=== PATIENT | male | born 1955 | race Caucasian/White ===

== ENCOUNTER 2018-01-20 06:12 | Day surgery (SDC) | payer OTHER ==
[2018-01-20] MEDS ORDERED: LACTATED RINGERS 1,000 ML IV ONE (06:48)
[2018-01-20] MEDS ORDERED: MIDAZOLAM 2 MG/2 ML VIAL IVP ONE (07:43)
[2018-01-20] MEDS ORDERED: fentaNYL 250 MCG/5 ML VIAL IVP ONE (07:43)
[2018-01-20 08:37] VITALS: BP 108/62
== END 2018-01-20 06:13 | disposition home or self-care (01) ==
LOC: SDS 06:12
PROVIDERS: ATTEND Surgery
PROC: 0DJD8ZZ Inspection of Lower Intestinal Tract, Via Natural or Artificial Opening Endoscopic (ICD-10-PCS; principal; 2018-01-20 07:30)
DX: Z12.11 Encounter for screening for malignant neoplasm of colon (principal); K57.30 Diverticulosis of large intestine without perforation or abscess without bleeding; K64.8 Other hemorrhoids; E11.9 Type 2 diabetes mellitus without complications; F32.9 Major depressive disorder, single episode, unspecified
CPT/HCPCS: 45378; J7120

== ENCOUNTER 2021-01-30 16:47 | Outpatient (CLI) | payer MEDICARE | END 2021-01-30 16:48 | disposition home or self-care (01) | LOC: COV 16:47 | PROVIDERS: ATTEND Family Medicine | DX: R50.9 Fever, unspecified (principal); M79.10 Myalgia, unspecified site; R53.83 Other fatigue; Z20.822 Contact with and (suspected) exposure to COVID-19 ==

== ENCOUNTER 2023-12-16 09:02 | Emergency (ER) | payer MEDICARE ==
[2023-12-16 09:28] LABS: BASOPHILS # (AUTO) 0.1 10^3/uL (0.0-0.1); BASOPHILS % (AUTO) 0.9 %; EOSINOPHILS # (AUTO) 0.1 10^3/uL (0.0-0.7); EOSINOPHILS % (AUTO) 0.9 %; HCT - HEMATOCRIT 44.5 % (42.0-52.0); HGB - HEMOGLOBIN 15.3 g/dL (14.0-18.0); LYMPHOCYTES # (AUTO) 1.5 10^3/uL (1.5-3.5); LYMPHOCYTES % (AUTO) 26.6 %; MEAN CORPUSCULAR HEMOGLOBIN 30.7 pg (27.0-31.0); MEAN CORPUSCULAR HGB CONC 34.4 g/dL (32.0-36.0); MEAN CORPUSCULAR VOLUME 89.2 fL (80.0-94.0); MEAN PLATELET VOLUME 11.2 fL (7.4-11.4); MONOCYTES # (AUTO) 0.6 10^3/uL (0.0-1.0); MONOCYTES % (AUTO) 10.1 %; NEUTROPHILS # (AUTO) 3.5 10^3/uL (1.5-6.6); NEUTROPHILS % (AUTO) 61.1 %; PLT - PLATELET COUNT 183 10^3/uL (130-450); RED BLOOD COUNT 4.99 10^6/uL (4.70-6.10); RED CELL DISTRIBUTION WIDTH 13.3 % (12.0-15.0); WHITE BLOOD COUNT 5.7 x10^3/uL (4.8-10.8)
[2023-12-16] MEDS: ASPIRIN CHEW 81 MG TABLET PO STA (09:32)
[2023-12-16] MEDS: NITROGLYCERIN SL 0.4 MG TABLET SL STA (09:33)
--- NOTE | 2023-12-16 09:33 | ED Physician Documentation ---
History of Present Illness - Stated complaint Stated Complaint: CHEST PX,HEART BURN - Chief complaint Chief Complaint: Cardiac - Additonal information Additional information: Patient 68-year-old male presenting the emergency department with chest pain. Reports intermittent episodes of chest pain x 1 week. Recent travel, flew back from [place]. Has past medical significant for diabetes, dyslipidemia. No history hypertension, no history of smoking. No previous blood clots or cardiac issues. Reports feeling as though he is getting kicked in the chest. States that this has been coming and going for greater than 1 week but has become progressively worse since this morning. No associated nausea, vomiting, diaphoresis. Review of Systems Constitutional: denies: Fever Eyes: denies: Loss of vision Ears: denies: Loss of hearing Nose: denies: Rhinorrhea / runny nose Throat: denies: Dental pain / toothache Cardiac: reports: Chest pain / pressure Respiratory: denies: Dyspnea GI: denies: Abdominal Pain : denies: Dysuria PD PAST MEDICAL HISTORY - Past Medical History Past Medical History: Yes Cardiovascular: Murmur Respiratory: None Endocrine/Autoimmune: Type 2 diabetes GI: None : None HEENT: Chronic vision loss Psych: Bipolar disorder Musculoskeletal: None Derm: None - Past Surgical History Past Surgical History: Yes General: Colonoscopy, Other Ortho: Arthroscopic surgery - Present Medications Home Medications: Ambulatory Orders Medication Instructions Recorded Confirmed Divalproex [Brandie Pimentel] 250 mg PO TID 01/17/18 01/20/18 buPROPion [Wellbutrin Sr] 75 mg PO BID 01/17/18 01/20/18 buPROPion [Wellbutrin Sr] 100 mg PO DAILY 01/17/18 01/20/18 - Allergies Allergies/Adverse Reactions: Allergies Allergy/AdvReac Type Severity Reaction Status Date / Time No Known Drug Allergies Allergy Verified 12/16/23 09:22 - Social History Does the pt smoke?: No Smoking Status: Never smoker Does the pt drink ETOH?: No Does the pt have substance abuse?: No - Immunizations Immunizations are current?: Yes - POLST Patient has POLST: No PD ED PE NORMAL - Vitals Vital signs reviewed: Yes - General General: Alert and oriented X 3, Other (Patient appears unwell, very uncomfortable.). 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 Relevant findings are: 6 sinus rhythm with rate 69 bpm. Left axis deviation. Normal TX, QRS, QTc intervals. Prominent ST segment elevation in V2-V3. No reciprocal changes. No previous EKG available for comparison. PD Medical Decision Making - ED course Complexity details: d/w patient, d/w call center support consultant ED course: Patient 68-year-old male presented to the emergency department with active chest pain that has been happening intermittently x 1 week. No previous cardiac history. Risk factors for ACS include type 2 diabetes, dyslipidemia, age. Patient arrives afebrile, he medically stable. Appears ill on arrival. In acute distress. EKG with nonspecific T wave abnormalities, possible low ST segment elevations V2-V4. No appreciable reciprocal changes. No previous EKG available for comparison. Highly concerning for AGNIESZKA. Discussed with Dr. Cantu, emergency department at [facility] who very graciously agrees to accept the patient for further evaluation and treatment. In the interim patient given aspirin, heparin, 1 sublingual nitroglycerin with moderate improvement in symptoms. Bedside wet read of patient's chest x-ray no pneumothorax, hemothorax, mediastinal widening. Departure - Departure Disposition: 02 Transfer Acute Care Hosp Clinical Impression: Chest pain Qualifiers: Chest pain type: unspecified Qualified Code(s): R07.9 - Chest pain, unspecified Forms: PCP List
[2023-12-16] MEDS: HEPARIN 5,000 UNIT/ML VIAL IVP STA (09:34)
[2023-12-16] MEDS: HEPARIN 25000UNITS/500ML (D5W) 25,000 UNIT/500 ML BAG IV SCH (09:37)
[2023-12-16 09:45] LABS: ALBUMIN 4.4 g/dL (3.2-5.5); ALBUMIN/GLOBULIN RATIO 1.7 (1.0-2.2); BILIRUBIN,TOTAL 0.6 mg/dL (0.2-1.0); CALCIUM 9.8 mg/dL (8.5-10.3); POTASSIUM 4.5 mmol/L (3.5-4.5)
[2023-12-16 09:49] VITALS: BP 160/102; O2SAT 98
--- NOTE | 2023-12-16 09:49 | XRAY Report ---
PROCEDURE: Chest 1V INDICATIONS: chest pain TECHNIQUE: One view of the chest was acquired. COMPARISON: None. FINDINGS: Surgical changes and devices: None. Lungs and pleura: No pleural effusions or pneumothorax. Lungs are clear. Mediastinum: Mediastinal contours appear normal. Heart size is normal. Bones and chest wall: No suspicious bony lesions. Overlying soft tissues appear unremarkable. IMPRESSION: No acute cardiopulmonary process. Reviewed by: Gabriel Franz MD on 12/16/2023 9:48 AM PDT Approved by: Gabriel Franz MD on 12/16/2023 9:48 AM PDT Station ID: [id number]
== END 2023-12-16 10:04 | disposition short-term general hospital (02) ==
LOC: ED 09:02
DX: R07.9 Chest pain, unspecified (principal); E11.9 Type 2 diabetes mellitus without complications
CPT/HCPCS: 36415; 71045; 80053; 83690; 84484; 85025; 93005; 96374; 99285; A9270

== ENCOUNTER 2023-12-22 21:15 | Emergency (ER) | payer MEDICARE ==
--- NOTE | 2023-12-22 22:45 | XRAY Report ---
PROCEDURE: Chest 1V INDICATIONS: cough/ TECHNIQUE: One view of the chest was acquired. COMPARISON: 12/16/2023 FINDINGS: Surgical changes and devices: None. Lungs and pleura: No pleural effusions or pneumothorax. Lungs are clear. Mediastinum: Mediastinal contours appear normal. Heart size is normal. Bones and chest wall: No suspicious bony lesions. Degenerative changes in both shoulders. Overlying soft tissues appear unremarkable. IMPRESSION: No acute cardiopulmonary process. Reviewed by: Michelle Jeronimo MD on 12/22/2023 10:43 PM PDT Approved by: Michelle Jeronimo MD on 12/22/2023 10:43 PM PDT Station ID: [id number]
--- NOTE | 2023-12-22 22:45 | ED Physician Documentation ---
History of Present Illness - Stated complaint Stated Complaint: COUGH/FEVER - Chief complaint Chief Complaint: Resp - History obtained from History obtained from: Patient, Family - Additonal information Additional information: The patient comes to the emergency department chief complaint of productive cough, rhinorrhea, and sore throat for the last 4 days after being discharged from [facility] after being admitted for SD and stent placement. He states he did not have any symptoms at all in the hospital and that the cough started the evening he was discharged. He states he developed a productive cough and then began to have fevers yesterday. His temperature is gone as high as 101 at home. The patient denies shortness of breath. He is concerned about his stents in his heart recovery and that he is not getting enough oxygen with his cough. The patient has no underlying respiratory issues. PD PAST MEDICAL HISTORY - Past Medical History Past Medical History: Yes Cardiovascular: Murmur Respiratory: None Endocrine/Autoimmune: Type 2 diabetes GI: None : None HEENT: Chronic vision loss Psych: Bipolar disorder Musculoskeletal: None Derm: None - Past Surgical History Past Surgical History: Yes General: Colonoscopy, Other Ortho: Arthroscopic surgery - Present Medications Home Medications: Ambulatory Orders Medication Instructions Recorded Confirmed Divalproex [Brandie Pimentel] 250 mg PO TID 01/17/18 12/22/23 buPROPion [Wellbutrin Sr] 75 mg PO BID 01/17/18 12/22/23 buPROPion [Wellbutrin Sr] 100 mg PO DAILY 01/17/18 12/22/23 Clopidogrel [Plavix] 1 tab PO DAILY 12/22/23 12/22/23 Levothyroxine Sodium 1 tab PO DAILY 12/22/23 12/22/23 Losartan Potassium 12.5 mg PO DAILY 12/22/23 12/22/23 Metoprolol Succinate [Toprol Xl] 12.5 mg PO DAILY 12/22/23 12/22/23 Rosuvastatin Calcium [Crestor] 40 mg PO QPM 12/22/23 12/22/23 Azithromycin [Zithromax] 0 mg PO DAILY #6 tablet 12/23/23 - Allergies Allergies/Adverse Reactions: Allergies Allergy/AdvReac Type Severity Reaction Status Date / Time No Known Drug Allergies Allergy Verified 12/22/23 21:48 - Social History Does the pt smoke?: No Smoking Status: Never smoker Does the pt drink ETOH?: No Does the pt have substance abuse?: No - Immunizations Immunizations are current?: Yes - POLST Patient has POLST: No PD ED PE NORMAL - Vitals Vital signs reviewed: Yes - General General: Alert and oriented X 3, No acute distress, Well developed/nourished, Other (Well-appearing patient, no apparent distress.) - HEENT HEENT: Atraumatic, PERRL, EOMI, Moist mucous membranes - Neck Neck: Supple, no meningeal sign - Cardiac Cardiac: RRR, No murmur - Respiratory Respiratory: No respiratory distress, Clear bilaterally - Abdomen Abdomen: Soft, Non tender, Non distended - Derm Derm: Normal color, Warm and dry, No rash - Extremities Extremities: No deformity, No edema, No calf tenderness / cord - Neuro Neuro: Alert and oriented X 3, Other (Grossly intact.) - Psych Psych: Normal mood, Normal affect Results - Vitals Vitals: Oxygen O2 Source Room air - Labs Labs: Microbiology 12/22/23 22:52 Blood Culture - Preliminary Blood NO GROWTH AFTER 1 DAY 12/22/23 22:52 Blood Culture - Preliminary Blood NO GROWTH AFTER 1 DAY Laboratory Tests 12/22/23 12/22/23 12/22/23 21:42 22:52 22:52 WBC 7.4 RBC 4.31 L Hgb 13.1 L Hct 38.2 L MCV 88.6 MCH 30.4 MCHC 34.3 RDW 12.5 Plt Count 216 MPV 11.2 Neut # (Auto) 4.0 Lymph # (Auto) 1.6 [place] # (Auto) 1.6 H Eos # (Auto) 0.1 Baso # (Auto) 0.1 Absolute Nucleated RBC 0.00 Band Neuts % (Manual) Not Reportable Abnorm Lymph % (Manual) Not Reportable Nucleated RBC % 0.0 Neutrophils # (Manual) Not Reportable Lymphocytes # (Manual) Not Reportable Monocytes # (Manual) Not Reportable Eosinophils # (Manual) Not Reportable Basophils # (Manual) Not Reportable Differential Comment MANUAL=AUTO DIFF Platelet Estimate NORMAL (130-450,000) Platelet Morphology NORMAL APPEARANCE RBC Morph Micro Appear NORMAL APPEARANCE Sodium 132 L Potassium 3.7 Chloride 96 L Carbon Dioxide 26 Anion Gap 10.0 BUN 20 Creatinine 1.2 Estimated GFR (MDRD) 60 L Glucose 105 H Calcium 9.5 Total Bilirubin 0.4 AST 24 ALT 22 Alkaline Phosphatase 56 Total Protein 6.8 Albumin 4.0 Globulin 2.8 Albumin/Globulin Ratio 1.4 Lipase < 10 L Nasal Adenovirus (PCR) NOT DETECTED Nasal B. parapertussis DNA (PCR) NOT DETECTED Nasal Coronavir 229E PCR NOT DETECTED Nasal Coronavir HKU1 PCR NOT DETECTED Nasal Coronavir NL63 PCR NOT DETECTED Nasal Coronavir OC43 PCR DETECTED A Nasal Enterovir/Rhinovir PCR NOT DETECTED Nasal Influenza B PCR NOT DETECTED Nasal Influenza A PCR NOT DETECTED Nasal Parainfluen 1 PCR NOT DETECTED Nasal Parainfluen 2 PCR NOT DETECTED Nasal Parainfluen 3 PCR NOT DETECTED Nasal Parainfluen 4 PCR NOT DETECTED Nasal RSV (PCR) NOT DETECTED Nasal B.pertussis DNA PCR NOT DETECTED Nasal C.pneumoniae (PCR) NOT DETECTED [place] Human Metapneumo PCR NOT DETECTED Nasal M.pneumoniae (PCR) NOT DETECTED Nasal SARS-CoV-2 (PCR) NOT DETECTED - Rads (name of study) CXR Relevant Findings:: Final report received, See rad report (neg) PD Medical Decision Making - ED course Complexity details: reviewed old records, reviewed results, re-evaluated patient, considered differential, d/w patient, d/w family ED course: The patient was worked up with labs and blood cultures, as well as chest x-ray. Respiratory PCR panel was also sent. Given the pt's productive cough, age, and recent significant physical stress, I was concerned for the development of bacterial upper respiratory infection, and the pt was started on antibiotics. PCR panel did show positive non-covid coronavirus. WBC count was negative, and pt was feeling much better after fluids and defervescence. We have discussed the usual indications for return, and the need for follow-up as scheduled with cardiology. Departure - Departure Disposition: 01 Home, Self Care Clinical Impression: Bronchitis, Coronavirus infection Condition: Stable Instructions: ED Upper Resp Infec Abx Tx, ED Viral Syndrome Prescriptions: Azithromycin [Zithromax] 0 mg PO DAILY #6 tablet Comments: The radiologist read your x-ray as negative. You were positive for non-COVID coronavirus on your viral panel and we have been seeing this going around lately. Given your densely productive cough, we will complete the course of antibiotics for bronchitis. The prescription has been electronically transmitted to the [facility] in [place]. Please pick this up tomorrow and continue taking the antibiotics until the course is complete. As far as the coronavirus, like all viruses, this will ultimately pass on its own. Symptoms can last anywhere from several days to a couple of weeks, and include upper respiratory symptoms and fevers. You may take Tylenol 1000 mg every 6 hours as needed for fever, or you may take 500 mg every 3 hours as needed for fever. Please be sure you are drinking plenty of fluids and staying hydrated. Please follow-up with your primary doctor and television journalist as scheduled. Forms: PCP List Discharge Date/Time: 12/23/23 00:21
[2023-12-22] MEDS ORDERED: cefTRIAXone 2 GM VIAL ONE (22:55)
[2023-12-22] MEDS: cefTRIAXone 2 GM in SODIUM CHLORIDE 0.9% MINIBAG 100 ML IV STA (22:57)
[2023-12-22] MEDS: IBUPROFEN 600 MG TABLET PO STA (22:57)
[2023-12-22] MEDS: AZITHROMYCIN 250 MG TABLET PO STA (22:57)
[2023-12-22] MEDS: ACETAMINOPHEN 325 MG TABLET PO STA (22:58)
[2023-12-22 22:59] LABS: B. PARAPERTUSSIS- RESP PCR PAN NOT DETECTED; B. PERTUSSIS- RESP PCR PANEL NOT DETECTED; C. PNEUMONIAE- RESP PCR PANEL NOT DETECTED; CORONAVIRUS 229E-RESP PCR NOT DETECTED; CORONAVIRUS HKU1-RESP PCR NOT DETECTED; CORONAVIRUS NL63-RESP PCR NOT DETECTED; CORONAVIRUS OC43-RESP PCR DETECTED; HUMAN METAPNEUMOVIRUS NOT DETECTED; INFLUENZA A- RESP PCR PANEL NOT DETECTED; INFLUENZA B - RESP PCR PANEL NOT DETECTED; M. PNEUMONIAE- RESP PCR PANEL NOT DETECTED; PARAINFLUENZA VIRUS 1 NOT DETECTED; PARAINFLUENZA VIRUS 2 NOT DETECTED; PARAINFLUENZA VIRUS 3 NOT DETECTED; PARAINFLUENZA VIRUS 4 NOT DETECTED; RHINOVIRUS/ENTEROVIRUS NOT DETECTED; RSV- RESP PCR PANEL NOT DETECTED; SARS-CoV-2 -RESP PCR PANEL NOT DETECTED
[2023-12-22 23:05] LABS: BASOPHILS # (AUTO) 0.1 10^3/uL (0.0-0.1); BASOPHILS % (AUTO) 0.8 %; EOSINOPHILS # (AUTO) 0.1 10^3/uL (0.0-0.7); EOSINOPHILS % (AUTO) 0.9 %; HCT - HEMATOCRIT 38.2 % (42.0-52.0); HGB - HEMOGLOBIN 13.1 g/dL (14.0-18.0); LYMPHOCYTES # (AUTO) 1.6 10^3/uL (1.5-3.5); LYMPHOCYTES % (AUTO) 21.8 %; MEAN CORPUSCULAR HEMOGLOBIN 30.4 pg (27.0-31.0); MEAN CORPUSCULAR HGB CONC 34.3 g/dL (32.0-36.0); MEAN CORPUSCULAR VOLUME 88.6 fL (80.0-94.0); MEAN PLATELET VOLUME 11.2 fL (7.4-11.4); MONOCYTES # (AUTO) 1.6 10^3/uL (0.0-1.0); MONOCYTES % (AUTO) 22.1 %; NEUTROPHILS % (AUTO) 53.9 %; PLT - PLATELET COUNT 216 10^3/uL (130-450); RED BLOOD COUNT 4.31 10^6/uL (4.70-6.10); RED CELL DISTRIBUTION WIDTH 12.5 % (12.0-15.0); WHITE BLOOD COUNT 7.4 x10^3/uL (4.8-10.8)
[2023-12-22 23:21] LABS: ALBUMIN/GLOBULIN RATIO 1.4 (1.0-2.2); ALKALINE PHOSPHATASE 56 IU/L (42-121); ALT ALANINE AMINOTRANSFERASE 22 IU/L (10-60); AST ASPARTATE AMINOTRANSFERASE 24 IU/L (10-42); BILIRUBIN,TOTAL 0.4 mg/dL (0.2-1.0); BUN - BLOOD UREA NITROGEN 20 mg/dL (6-20); CALCIUM 9.5 mg/dL (8.5-10.3); CARBON DIOXIDE - CO2 26 mmol/L (21-32); CHLORIDE 96 mmol/L (101-111); CREATININE 1.2 mg/dL (0.6-1.3); GFR - MDRD 60 (>89); GLUCOSE 105 mg/dL (74-104); POTASSIUM 3.7 mmol/L (3.5-4.5); SODIUM 132 mmol/L (135-145); TOTAL PROTEIN 6.8 g/dL (6.4-8.9)
[2023-12-22 23:23] LABS: LIPASE < 10 U/L (11-82)
[2023-12-23 00:24] VITALS: BP 128/86; O2SAT 95
[2023-12-23 00:27] LABS: PLATELET ESTIMATE, MANUAL NORMAL (130-450,000) (NORMAL); PLATELET MORPHOLOGY NORMAL APPEARANCE (NORMAL); RBC MORPHOLOGY (MULTIPLE) NORMAL APPEARANCE (NORMAL)
[2023-12-23 00:28] LABS: DIFFERENTIAL COMMENT MANUAL=AUTO DIFF
== END 2023-12-23 00:21 | disposition home or self-care (01) ==
LOC: ED 21:15
DX: J40 Bronchitis, not specified as acute or chronic (principal); B34.2 Coronavirus infection, unspecified
CPT/HCPCS: 36415; 71045; 80053; 83690; 85025; 87040; 87633; 96365; 99284; A9270

== ENCOUNTER 2024-03-30 07:21 | Outpatient (CLI) | payer MEDICARE ==
[2024-03-30 15:17] LABS: CHOL/HDL RATIO 2.4 (<5.0); CHOLESTEROL 127 mg/dL; HDL CHOLESTEROL 52 mg/dL; LDL CHOLESTEROL,CALCULATED 63 mg/dL; LDL/HDL RATIO 1.2 (<3.6); TRIGLYCERIDES 62 mg/dL (48-352); VLDL CHOLESTEROL 12 mg/dL
== END 2024-03-30 07:22 | disposition home or self-care (01) ==
LOC: LAB.S 07:21
PROVIDERS: ATTEND Nurse Practitioner Acute Care
DX: E78.5 Hyperlipidemia, unspecified (principal)
CPT/HCPCS: 36415; 80061; 83721